=== PATIENT | male | born 1970 | race Caucasian/White ===

== ENCOUNTER → 2017-11-03 | Outpatient (CLI) | payer OTHER | LOC: CAT 10:19 | DX: Z13.6 Encounter for screening for cardiovascular disorders (principal) ==

== ENCOUNTER → 2018-08-25 | Outpatient (CLI) | payer OTHER | LOC: CAT 07:47 | DX: E78.00 Pure hypercholesterolemia, unspecified (principal); Z86.79 Personal history of other diseases of the circulatory system ==